=== PATIENT | female | born 1945 | race Caucasian/White ===

== ENCOUNTER 2016-10-15 15:58 | Observation (INO) ==
[2016-10-15] MEDS ORDERED: MORPHINE SULFATE 2 MG SYRINGE IVP ONE ×3 (16:20→18:25)
--- NOTE | 2016-10-15 16:29 | Emergency Department Report ---
General Adult HPI - General Chief complaint: Fall Stated complaint: Fall Time Seen by Provider: 10/15/16 16:05 Source: patient Mode of arrival: EMS Limitations: no limitations - History of Present Illness HPI narrative: 89-year-old female presents to the emergency department with a chief complaint of an injury to the right lower extremity. Patient noted onset of symptoms earlier today prior travel to the emergency Department. Patient stood up and felt a popping sensation in her right lower extremity. Pain is moderate. Pain is dull. Pain increases with movement and improves with rest and positioning. - Related Data Home Medications Medication Instructions Recorded Confirmed Gabapentin 300 mg PO BID #0 06/22/10 10/15/16 Aspirin [Aspir 81] 81 mg PO DAILY #0 06/03/15 10/15/16 Carvedilol 3.125 mg PO BIDWM #0 06/03/15 10/15/16 Escitalopram Oxalate 10 mg PO DAILY #0 06/03/15 10/15/16 Fluconazole 100 mg PO DAILY #0 06/03/15 10/15/16 Furosemide 40 mg PO DAILY PRN #0 06/03/15 10/15/16 Hydrocodone/Acetaminophen 1 tab PO Q6H PRN #0 06/03/15 10/15/16 [Hydrocodon-Acetaminophn 10-325] Lactobacillus Rhamnosus GG 1 cap PO DAILY #0 06/03/15 10/15/16 [Culturelle] Morphine Sulfate [Ms Contin] 15 mg PO BID #0 06/03/15 10/15/16 Potassium Chloride 20 meq PO WB #0 06/03/15 10/15/16 Vitamin B Complex [B Complex] 1 tab PO WL #0 06/03/15 10/15/16 [address]SALAzine [Sulfasalazine Dr] 1,500 mg PO BID #0 06/03/15 10/15/16 Biotin 5,000 mcg PO WL 10/15/16 10/15/16 Cetirizine [Zyrtec] 10 mg PO HS 10/15/16 10/15/16 Estradiol [Estrace] 0.5 mg PO Q2D 10/15/16 10/15/16 Folic Acid 0.8 mg PO WL 10/15/16 10/15/16 Levothyroxine Sodium 37.5 mcg PO HS 10/15/16 10/15/16 Methotrexate Inj [Methotrexate] 25 mg IM WEEKLY 10/15/16 10/15/16 Multivit-Min/FA/Lycopen/Lutein 1 tab PO DAILY 10/15/16 10/15/16 [Centrum Silver Tablet] Tofacitinib Citrate [Xeljanz] 10 mg PO DAILY 10/15/16 10/15/16 guaiFENesin [Mucinex] 600 mg PO DAILY 10/15/16 10/15/16 Allergies Allergy/AdvReac Type Severity Reaction Status Date / Time No Known Allergies Allergy Verified 10/15/16 16:11 Review of Systems Constitutional: Denies: fever, chills Eyes: Denies: eye pain, vision change ENT: Denies: ear pain, throat pain Cardiovascular: Denies: chest pain, palpitations Respiratory: Denies: cough, dyspnea Gastrointestinal: Denies: abdominal pain, nausea, vomiting, diarrhea Genitourinary: Denies: urgency, dysuria Musculoskeletal: Reports: arthralgia. Denies: back pain Integumentary: Denies: erythema, rash Neurological: Denies: headache, numbness Psychiatric: Denies: anxiety, depression Endocrine: Denies: fatigue, heat or cold intolerance Hematological/Lymphatic: Denies: easy bleeding, easy bruising Allergic/Immunologic: Denies: facial swelling, urticaria PFSH Patient Stated Medical History Migraine Yes Cataracts Yes Dental Problems Yes Congestive Heart Failure Yes Coronary Artery Disease Yes Hypertension Yes Myocardial Infarction Yes Bronchitis Yes Chronic Obstructive Pulmonary Yes Disease (COPD) Diabetes Mellitus Type 2 Yes Hx Incontinence Yes Cellulitis Yes MRSA Yes Shingles Yes Depression Yes Post Menopausal Yes Clinic Medical History (Last Reviewed 10/13/16 @ 19:34 by Liz Hernández MD) AMBROSIO (obstructive sleep apnea) (Chronic Medical) Asthma (Chronic Medical) Hyperlipidemia (Chronic Medical) CHF (congestive heart failure) (Chronic Medical) Migraine headache (Chronic Medical) Chronic renal insufficiency, stage II (mild) (Chronic Medical) Hypothyroidism (Chronic Medical) Respiratory failure (Chronic Medical) COPD (chronic obstructive pulmonary disease) (Chronic Medical) Rheumatoid arthritis (Chronic Medical) Osteoarthritis (Chronic Medical) Depression (Chronic Medical) Type 2 diabetes mellitus (Chronic Medical) Hypertension (Chronic Medical) Non-ST elevated myocardial infarction (non-STEMI) (Resolved Medical) Surgical History: Tonsils-1955, Toe Surgery 1994, Hysterectomy-1998. Back Surgery 2000, Lypoma-2002, Ankle-08/06/2013, Rt Wrist Carpal Tunnel- 2012, Family History: Family History (Last Reviewed 10/13/16 @ 19:34 by Liz Hernández MD) Other Unknown family medical history - Social History Smoking status: Current every day smoker Substance use type: does not use Alcohol intake frequency: does not drink Physical Exam - Limitations Limitations: no limitations - General General appearance: alert, in no apparent distress - Normal Exams: Head:: Normocephalic without trauma Eyes:: Pupils are PERRLA w/ EOMI, No scleral icterus, irritation, or foreign bodies noted ENMT:: No facial trauma, nasal exudates, pharyngeal erythema, or exudates are noted Dental: No fractured, loose, or missing teeth noted Neck:: Full range of motion Chest/Respirations:: Clear all payne, with good airflow, and symmetry bilaterally Cardiovascular:: Regular rate and rhythm, without murmur or gallop, Pulses 2+ all extremities, capillary refill, <2 seconds all extremities Abdomen:: Bowel sounds positive, soft, non-tender, non-distended, no hepatosplenomegaly, masses or bruits noted Lymphatic:: No lymphadenopathy, or lymphedema noted Musculoskeletal:: No tenderness, or deformity noted, good range of motion, all extremities (RLE - + chronic deformity. Tender to palpation over the distal tibia/fibula. This is intact. Sensation intact. Capillary refill less than 2. Full range of motion. Skin is intact. No erythema. No edema.) Integumentary:: No rashes, hives, or bruising noted, hair and nails, without abnormality Neurological:: Patient is alert, and oriented, cranial nerves, motor/sensory/ cerebellar, exams w/o gross deficits, to observation Psychiatric:: Patient exhibits, appropriate attention, emotion and affect Course Vital Signs Temperature 98.4 F 10/15/16 16:00 Pulse Rate 75 10/15/16 16:00 Respiratory Rate 17 10/15/16 16:00 Blood Pressure 169/79 H 10/15/16 16:00 Pulse Oximetry 98 10/15/16 16:00 Temperature 97.8 F 10/16/16 07:45 Pulse Rate 77 10/16/16 07:45 Respiratory Rate 16 10/16/16 07:45 Blood Pressure 174/87 H 10/16/16 07:45 Pulse Oximetry 93 10/16/16 07:45 Medical Decision Making - MDM Narrative Medical decision making narrative: Imaging is discussed in detail with the patient and questions are answered. Patient is given analgesic pain medication within 1 hour of arrival to the emergency Department. Patient is placed in a short-leg posterior splint with sugar tong by myself with good alignment. Patient is distal neurovascular intact post-application of splint. Patient is unable to return home and is admitted to the service of the hospitalist with orthopedic consultation of Dr. Otto. Patient and family are in agreement with the current plan of management. Patient is admitted to the hospital in improved condition per patient is admitted to the service of Dr. Angulo. No further orders from accepting or consulting physicians were in agreement with the current plan of management. - Differential Diagnosis sprain, strain, fracture, dislocation - Lab Data Result diagrams: 10/16/16 04:50 10/16/16 04:50 - Radiology Data Right foot x-ray: Negative Right tibia/fibula x-ray: Tibial fracture noted. Closed. Right ankle x-ray: Tibial fracture noted. Chronic changes postoperative. Closed. Disposition Clinical Impression: Compression fracture Disposition: 02 To [facility] Condition: Stable Time of Disposition: 18:15 - Seen By: physician
--- NOTE | 2016-10-15 17:20 | XRay Report ---
Indication: PAin / INJURY PROCEDURE: XR foot RT min 3V: Encounter: Initial Comparison: None Findings: No acute fracture identified. Bony ankylosis of the hindfoot. Severe degenerative change at the first metatarsophalangeal joint. Flexion deformities of the first and second toes are probably chronic. Inferior calcaneal spurring. Diffuse soft tissue swelling. Impression: No acute fracture. .
[2016-10-15] MEDS ORDERED: ONDANSETRON 4 MG/2 ML INJECTION IVP PRN (19:37)
--- NOTE | 2016-10-15 20:00 | History & Physical Report ---
History of Present Illness Date: 10/15/16 Chief complaint: Severe right lower leg pain. HPI: 70 y/o female presents to [facility] via EMS secondary to severe right lower leg pain. She has had previous fractures to this ext, resulting in her right foot rotated outwards. On 10/07 she started to having increasing pain to this ext. No injury or trauma at that time. Pain very persistent, not relieved with her chronic pain medications. She was worried she developed a fracture; was seen my Dr Hernández for evaluation. Xrays done at that time did not show any acute marixa abnormality. Sono done did not show DVT. Pain has persisted. Was seen yesterday by PCP. Given cortisone injection and Home Health initiated. Today was coming back from the bathroom and needed to transfer from her hover round to chair. As got up, felt and heard a loud POP in her right leg. Developed severe pain. Fortunately, was able to ease herself onto chair. She had no head trauma or loss of consciousness. EMS activated and patient taken to [facility] ED for evaluation. Required 6mg MS enroute due to pain. X-rays revealed a tib/fib fracture. Patient splinted in ED. Treated with IV pain medications. With her severe pain and limited mobility, unable to transfer. Dr Angulo notified for admission to OBS for further pain control and evaluation. Review of Systems Comprehensive ROS: completed and no additional positive findings except those as stated - EENMT Nose: Present: allergies - Respiratory Respiratory: Present: cough (occational) - Musculoskeletal Musculoskeletal: Present: back pain (Chronic) - Allergic/Immunologic Allergic/Immunologic: Present: seasonal rhinorrhea. Absent: throat swelling, itchy eyes [facility] Medical History (Last Reviewed 10/13/16 @ 19:34 by Liz Hernández MD) AMBROSIO (obstructive sleep apnea) (Chronic Medical) Asthma (Chronic Medical) Hyperlipidemia (Chronic Medical) CHF (congestive heart failure) (Chronic Medical) Migraine headache (Chronic Medical) Chronic renal insufficiency, stage II (mild) (Chronic Medical) Hypothyroidism (Chronic Medical) Respiratory failure (Chronic Medical) COPD (chronic obstructive pulmonary disease) (Chronic Medical) Rheumatoid arthritis (Chronic Medical) Osteoarthritis (Chronic Medical) Depression (Chronic Medical) Type 2 diabetes mellitus (Chronic Medical) Hypertension (Chronic Medical) Non-ST elevated myocardial infarction (non-STEMI) (Resolved Medical) Surgical History: Tonsils-1955, Toe Surgery 1994, Hysterectomy-1998. Back Surgery 2000, Lypoma-2001, Ankle-08/06/2013, Rt Wrist Carpal Tunnel- 2012, Family History: Father of colon cancer. Mother of heart disease; had HTN and OA. - Social History Smoking status: Current every day smoker (6 cigarettes a day) Housing: house Household members: spouse ( 50 years in Mar 2017) Current residence: Apartment/Private Home Social history: Dr Gardner PCP Medications Home Medications Medication Instructions Recorded Confirmed Type Gabapentin 300 mg PO BID #0 06/22/10 10/15/16 History Aspirin [Aspir 81] 81 mg PO DAILY #0 06/03/15 10/15/16 History Carvedilol 3.125 mg PO BIDWM #0 06/03/15 10/15/16 History Escitalopram Oxalate 10 mg PO DAILY #0 06/03/15 10/15/16 History Fluconazole 100 mg PO DAILY #0 06/03/15 10/15/16 History Furosemide 40 mg PO DAILY PRN #0 06/03/15 10/15/16 History Hydrocodone/Acetaminophen 1 tab PO Q6H PRN #0 06/03/15 10/15/16 History [Hydrocodon-Acetaminophn 10-325] Lactobacillus Rhamnosus GG 1 cap PO DAILY #0 06/03/15 10/15/16 History [Culturelle] Morphine Sulfate [Ms Contin] 15 mg PO BID #0 06/03/15 10/15/16 History Potassium Chloride 20 meq PO WB #0 06/03/15 10/15/16 History Vitamin B Complex [B Complex] 1 tab PO WL #0 06/03/15 10/15/16 History sulfaSALAzine [Sulfasalazine Dr] 1,500 mg PO BID #0 06/03/15 10/15/16 History Biotin 5,000 mcg PO WL 10/15/16 10/15/16 History Cetirizine [Zyrtec] 10 mg PO HS 10/15/16 10/15/16 History Estradiol [Estrace] 0.5 mg PO Q2D 10/15/16 10/15/16 History Folic Acid 0.8 mg PO WL 10/15/16 10/15/16 History Levothyroxine Sodium 37.5 mcg PO HS 10/15/16 10/15/16 History Methotrexate Inj [Methotrexate] 25 mg IM WEEKLY 10/15/16 10/15/16 History Multivit-Min/FA/Lycopen/Lutein 1 tab PO DAILY 10/15/16 10/15/16 History [Centrum Silver Tablet] Tofacitinib Citrate [Xeljanz] 10 mg PO DAILY 10/15/16 10/15/16 History guaiFENesin [Mucinex] 600 mg PO DAILY 10/15/16 10/15/16 History Allergies Allergy/AdvReac Type Severity Reaction Status Date / Time No Known Allergies Allergy Verified 10/15/16 16:11 Exam Vital Signs: Temperature 98.1 F 10/15/16 18:30 Pulse Rate 70 10/15/16 19:25 Respiratory Rate 20 10/15/16 19:25 Blood Pressure 182/79 H 10/15/16 19:25 Pulse Oximetry 93 10/15/16 19:25 Oxygen Delivery Method Room Air - Constitutional Present: mild distress, well nourished, well developed, morbidly obese, cooperative - Routine HEENT Exam Head: Present: normocephalic, atraumatic Eye: Present: EOMI, PERRL. Absent: conjunctival icterus ENT: Present: mucous membranes moist - Routine Neck Exam Present: supple, trachea midline - Routine Respiratory Exam Present: CTA bilaterally. Absent: respiratory distress, rhonchi, wheezes, crackles - Routine Cardiovascular Exam Present: RRR, no murmur - Routine Abdominal Exam Present: soft, normoactive bowel sounds, non distended, non tender. Absent: rebound - Routine Extremities Exam Present: edema (+2 bilateral LE), pulses intact - Detailed Lower Extremity Exam Lower leg: Right deformity (Ankle rotated laterally; splint on leg) - Routine Skin Exam Present: intact, warm, normal turgor - Routine Neurological Exam Present: alert, oriented X3, CN II-XII intact, vision grossly intact, hearing grossly intact. Absent: motor deficit - Routine Psychiatric Exam Present: normal affect, normal thought process, cooperative, good insight, good judgment. Absent: anxious, agitated Assessment and Plan (1) Tibia/fibula fracture Current visit: Yes Status: Acute DVT Prophylaxis: SCD's Resuscitation Status: Do Not Resuscitate Assessment and Plan: Assessment Right tib/fib fracture Intractable pain Gait instability - acute on chronic Chronic pain Chronic narcotic pain use Type II DM COPD AMBROSIO HTN Hypothyroidism Tobacco dependency Morbid obesity Plan OBS for pain control - Dilaudid 0.5mg IV q 3 hours as needed. Continue chronic pain medications. PT/OT eval/treat in am due to patients worsening gait instability due to fracture pain. Ortho consult with Dr Otto for evaluation of fracture. SCD for DVT prevention. Continue home medications. RT for tobacco cessation. Offered nicotine patch, but patient declined. Monitor blood sugars due to diabetes. Continue home medications. Discussed code status: patient request DNR. Care to return to Dr Gardner at time of discharge from [facility]. High risk medication involved-IV Dilaudid. Monitor respiratory status. Hospital Course Summary Disclaimer: The visit summary below is not to be considered part of the above Progress Note. Hospital Course: 10/15/16 Assessment Right tib/fib fracture Intractable pain Gait instability - acute on chronic Chronic pain Chronic narcotic pain use Type II DM COPD AMBROSIO HTN Hypothyroidism Tobacco dependency Morbid obesity Plan OBS for pain control - Dilaudid 0.5mg IV q 3 hours as needed. Continue chronic pain medications. PT/OT eval/treat in am due to patients worsening gait instability due to fracture pain. Ortho consult with Dr Otto for evaluation of fracture. SCD for DVT prevention. Continue home medications. RT for tobacco cessation. Offered nicotine patch, but patient declined. Monitor blood sugars due to diabetes. Continue home medications. Discussed code status: patient request DNR. Care to return to Dr Gardner at time of discharge from [facility].
[2016-10-15] MEDS: HYDROMORPHONE 2 MG/ML INJECTION IVP PRN (20:01)
[2016-10-15 20:15] VITALS: BMI 52.1
[2016-10-15] MEDS ORDERED: BISACODYL 10 MG SUPPOSITORY RECTALLY PRN (20:18)
[2016-10-15] MEDS ORDERED: FALL RISK - PHARMACY CONSULT MC PRN (20:26)
[2016-10-15] MEDS ORDERED: LEVOTHYROXINE 25 MCG TABLET PO SCH (21:00)
[2016-10-15] MEDS ORDERED: CETIRIZINE 10 MG PO SCH (21:00)
[2016-10-15] MEDS: GABAPENTIN 300 MG CAP - PT OWN PO SCH (22:46)
[2016-10-16] MEDS: HYDROCODONE/APAP 10 MG/325 MG TABLET PO PRN ×2 (00:49→13:53)
[2016-10-16] MEDS: AMOX PO SCH ×2 (01:53→09:38)
[2016-10-16] MEDS: CLAV PO SCH ×2 (01:53→09:38)
[2016-10-16] MEDS: HYDROMORPHONE 2 MG/ML INJECTION IVP PRN ×3 (01:59→12:45)
[2016-10-16] MEDS: SALINE FLUSH 10ml SYRINGE IV PRN ×3 (06:12→15:07)
[2016-10-16] MEDS ORDERED: LEVOTHYROXINE 25 MCG PO SCH (06:30)
[2016-10-16] MEDS: SULFASALAZINE 500 MG PO SCH ×2 (07:43→09:43)
--- NOTE | 2016-10-16 07:51 | XRay Report ---
Indication: Pain / INJURY PROCEDURE: XR tib/fib RT 2V: Encounter: Initial Comparison: None Findings: There is a nondisplaced oblique fracture of the distal tibial diaphysis. No additional acute fracture seen. There are chronic abnormalities seen with prior resection of the distal fibula and arthrodesis of the ankle joint with a partially threaded screw. Abnormal positioning of the foot which is externally rotated, likely chronic. Impression: Closed posttraumatic distal tibial fracture. .
--- NOTE | 2016-10-16 07:51 | XRay Report ---
Indication: Pain / INJURY PROCEDURE: XR ankle RT min 3V: Encounter: Initial Comparison: Tibia and fibular radiographs from the same time and right ankle radiographs dated October 11, 2016 Findings: Oblique nondisplaced fracture of the distal tibial diaphysis is seen. Prior resection of the distal fibula. Prior arthrodesis of the hindfoot with a partially threaded screw across the fused ankle joint. Complete bony ankylosis of the hindfoot. Impression: Closed posttraumatic distal tibial fracture. .
[2016-10-16] MEDS ORDERED: LACTOBACILLUS PO SCH (08:00)
[2016-10-16] MEDS ORDERED: CARVEDILOL 3.125 MG PO SCH (08:00)
[2016-10-16] MEDS ORDERED: POLYETHYL GLYCOL 3350 17gm PACKET PO SCH (09:00)
[2016-10-16] MEDS ORDERED: GUAIFENESIN 600 MG PO SCH (09:00)
[2016-10-16] MEDS ORDERED: ASPIRIN *EC* 81 MG TAB - PT OWN PO SCH (09:00)
[2016-10-16] MEDS ORDERED: FLUCONAZOLE 100 MG PO SCH (09:00)
[2016-10-16] MEDS ORDERED: ESCITALOPRAM 10 MG TABLET PO SCH (09:00)
[2016-10-16] MEDS ORDERED: MULTI VITAMIN PO SCH (09:00)
--- NOTE | 2016-10-16 09:23 | Orthopedic Consult Note ---
Orthopedic Consultation HPI - Consultation Info Consult Date: 10/17/16 Attending Physician: Alan Angulo MD Consult Reason: fracture - History of Present Illness Cherrie is a 70 yo lady who had a right talo-tibial fusion by Dr Mares a few years ago. She is severely limited in mobility and is dependent on a scooter to get around. She does take a step or two on the right leg with transfers but is more dependent on the left side for support. She began having pain a few weeks ago but did not experience severe pain until . She was transferring to her scooter when she heard a loud "pop" and experienced immediate-severe pain in the right lower leg. She presented to [facility] [place] [facility] for evaluation and was found to have a non-displace distal tibia fracture on the right. Pt was placed in the hospital by Dr Angulo for pain management and mobility limitations with this fracture. Orthopedics is consulted for management of the fracture. Pt continues to report moderate pain levels this AM. Review of Systems - Constitutional Constitutional: Absent: chills, fever(s) - Cardiovascular Cardiovascular: Absent: chest pain - Respiratory Respiratory: Absent: cough - Gastrointestinal Gastrointestinal: Absent: abdominal pain - Genitourinary Genitourinary General: Absent: chills, fever(s) - Musculoskeletal Musculoskeletal: Present: as per HPI, abnormal gait, arthralgias, deformity, joint pain - Neurological Neurological: Present: abnormal gait. Absent: frequent falls - Psychiatric Psychiatric: Absent: depression PFS Patient Stated Medical History Migraine Yes Cataracts Yes Dental Problems Yes Congestive Heart Failure Yes Coronary Artery Disease Yes Hypertension Yes Myocardial Infarction Yes Bronchitis Yes Chronic Obstructive Pulmonary Yes Disease (COPD) Diabetes Mellitus Type 2 Yes Hx Incontinence Yes Cellulitis Yes MRSA Yes Shingles Yes Depression Yes Post Menopausal Yes Clinic Medical History (Last Reviewed 10/13/16 @ 19:34 by Liz Hernández MD) AMBROSIO (obstructive sleep apnea) (Chronic Medical) Asthma (Chronic Medical) Hyperlipidemia (Chronic Medical) CHF (congestive heart failure) (Chronic Medical) Migraine headache (Chronic Medical) Chronic renal insufficiency, stage II (mild) (Chronic Medical) Hypothyroidism (Chronic Medical) Respiratory failure (Chronic Medical) COPD (chronic obstructive pulmonary disease) (Chronic Medical) Rheumatoid arthritis (Chronic Medical) Osteoarthritis (Chronic Medical) Depression (Chronic Medical) Type 2 diabetes mellitus (Chronic Medical) Hypertension (Chronic Medical) Non-ST elevated myocardial infarction (non-STEMI) (Resolved Medical) Surgical History: Tonsils-1955, Toe Surgery 1994, Hysterectomy-1998. Back Surgery 2000, Lypoma-2001, Ankle-08/06/2013, Rt Wrist Carpal Tunnel- 2012, Family History: Family History (Last Reviewed 10/13/16 @ 19:34 by Liz Hernández MD) Other Unknown family medical history - Social History Smoking status: Current every day smoker (6 cigarettes a day) Current residence: Apartment/Private Home Medications Home Medications Medication Instructions Recorded Confirmed Type Gabapentin 300 mg PO BID #0 06/22/10 10/15/16 History Aspirin [Aspir 81] 81 mg PO DAILY #0 06/03/15 10/15/16 History Carvedilol 3.125 mg PO BIDWM #0 06/03/15 10/15/16 History Escitalopram Oxalate 10 mg PO DAILY #0 06/03/15 10/15/16 History Fluconazole 100 mg PO DAILY #0 06/03/15 10/15/16 History Furosemide 40 mg PO DAILY PRN #0 06/03/15 10/15/16 History Hydrocodone/Acetaminophen 1 tab PO Q6H PRN #0 06/03/15 10/15/16 History [Hydrocodon-Acetaminophn 10-325] Lactobacillus Rhamnosus GG 1 cap PO DAILY #0 06/03/15 10/15/16 History [Culturelle] Morphine Sulfate [Ms Contin] 15 mg PO BID #0 06/03/15 10/15/16 History Potassium Chloride 20 meq PO Q2D #0 06/03/15 10/16/16 History Vitamin B Complex [B Complex] 1 tab PO WL #0 06/03/15 10/15/16 History sulfaSALAzine [Sulfasalazine Dr] 1,000 mg PO BID #0 06/03/15 10/16/16 History Biotin 5,000 mcg PO WL 10/15/16 10/15/16 History Cetirizine [Zyrtec] 10 mg PO HS 10/15/16 10/15/16 History Estradiol [Estrace] 0.5 mg PO Q2D 10/15/16 10/15/16 History Folic Acid 0.8 mg PO WL 10/15/16 10/15/16 History Levothyroxine Sodium 37.5 mcg PO AM 10/15/16 10/16/16 History Methotrexate Inj [Methotrexate] 25 mg IM WEEKLY 10/15/16 10/15/16 History Multivit-Min/FA/Lycopen/Lutein 1 tab PO NOON 10/15/16 10/16/16 History [Centrum Silver Tablet] Tofacitinib Citrate [Xeljanz] 10 mg PO DAILY 10/15/16 10/15/16 History guaiFENesin [Mucinex] 600 mg PO DAILY 10/15/16 10/15/16 History Amoxicillin/Potassium Clav 1 each PO BID 10/16/16 10/16/16 History [Augmentin 875-125 Tablet] Allergies Allergy/AdvReac Type Severity Reaction Status Date / Time No Known Allergies Allergy Verified 10/15/16 16:11 Orthopedic Exam Vital signs: Temperature 97.8 F 10/16/16 07:45 Pulse Rate 77 10/16/16 07:45 Respiratory Rate 16 10/16/16 07:45 Blood Pressure 174/87 H 10/16/16 07:45 Pulse Oximetry 93 10/16/16 07:45 Oxygen Delivery Method Room Air Oxygen Flow Rate 90 - Constitutional General Appearance: Present: alert, no acute distress, morbidly obese - Respiratory Exam Present: non-labored - Cardiovascular Exam Present: other (currently in a splint.) Capillary Refill: < 2-3 Seconds - Abdominal Exam Present: soft. Absent: tenderness, distended - Extremities Exam Present: edema (+2 bilateral LE), normal capillary refill - Detailed Lower Extremity Exam Lower leg: Right deformity (Ankle rotated laterally; splint on leg), Right swelling, Right tenderness (Distal tibial shaft.) Ankle: Bilateral normal inspection (Marked deformity of both ankles / feet.) Foot/Toes: Bilateral deformity, Bilateral decreased ROM - Integumentary Exam Present: pink, warm, dry. Absent: rash, erythema - Neurological Exam Present: no deficits - Psychiatric Exam Present: alert, normal affect - Labs Result Diagrams: 10/16/16 04:50 10/16/16 04:50 Abnormal lab results 10/16/16 10/16/16 Range/Units 04:50 04:50 WBC 11.1 H (4.5-11.0) T/MM3 RBC 3.65 L (4.00-5.20) M/MM3 MCV 108.8 H (80-100) UM3 MCH 34.5 H (26-34) UUG RDW Std Deviation 56.5 H (36.9-50.2) FL Neut % (Auto) 71.1 H (33-66) % Lymph % (Auto) 21.3 L (23-45) % Neut # 7.9 H (1.8-7.7) T/MM3 Abs Immat Gran (auto) 0.04 H (0.00-0.03) T/MM3 Carbon Dioxide 33 H (22-30) MEQ/L BUN 19.0 H (7-17) MG/DL BUN/Creatinine Ratio 27 H (6-26) RATIO Glucose 158 H (65-110) MG/DL AST 74 H (14-36) U/L ALT 68 H (9-52) U/L Alkaline Phosphatase 131 H (38-126) U/L H & H 10/16/16 Range/Units 04:50 Hgb 12.6 (12-16) GM/DL Hct 39.7 (36-46) % Impression and Recommendation (1) Fracture of tibial shaft, right, closed Qualifiers: Encounter type: initial encounter Fracture morphology: oblique Fracture alignment: nondisplaced Qualified Code(s): S82.234A - Nondisplaced oblique fracture of shaft of right tibia, initial encounter for closed fracture Status: Acute Pt has a non-displaced fracture of the right distal diaphysis of the tibia. Will treat this with a splint and non-wt bearing. Surgical intervention not required at this time. Monitor xrays to watch for displacement. Work with PT / OT and have Case Management discuss placement needs. Pt currently lives in her own home ([place]) with her , daughter and granddaughter. She is dependent on a chair to get up and down stairs and uses a scooter for mobilty. Will place her in a short leg, NON-wt bearing cast and recheck xrays. F/U on Friday to watch skin closely as she is diabetic. Will recheck xrays on Friday. Pt is at risk to displace the fracture if she is unable to maintain non-wt bearing status. Hospital Course Summary Disclaimer: The visit summary below is not to be considered part of the above Progress Note. Hospital Course: 10/15/16 Assessment Right tib/fib fracture Intractable pain Gait instability - acute on chronic Chronic pain Chronic narcotic pain use Type II DM COPD AMBROSIO HTN Hypothyroidism Tobacco dependency Morbid obesity Plan OBS for pain control - Dilaudid 0.5mg IV q 3 hours as needed. Continue chronic pain medications. PT/OT eval/treat in am due to patients worsening gait instability due to fracture pain. Ortho consult with Dr Otto for evaluation of fracture. SCD for DVT prevention. Continue home medications. RT for tobacco cessation. Offered nicotine patch, but patient declined. Monitor blood sugars due to diabetes. Continue home medications. Discussed code status: patient request DNR. Care to return to Dr Gardner at time of discharge from [facility] [place].
[2016-10-16] MEDS: GABAPENTIN 300 MG CAP - PT OWN PO SCH (09:46)
[2016-10-16] MEDS ORDERED: INSULIN ASPART 100unit/ml INJECTION SQ ONE (11:38)
[2016-10-16] MEDS ORDERED: INSULIN REGULAR, HUMAN 100 UNIT/ML INJECTION SQ ONE (11:56)
[2016-10-16] MEDS ORDERED: FOLIC ACID 1 MG PO SCH (12:00)
[2016-10-16] MEDS ORDERED: VITAMIN B COMPLEX PO SCH (12:00)
--- NOTE | 2016-10-16 13:44 | Progress Note ---
Subjective: F/U: Right tibial fracture. Doing okay today. Cast was placed by orthro-tolerating cast. Pain varies. Eating well. No nausea. Breathing well. Objective Vital signs: Temperature 97.8 F 10/16/16 07:45 Pulse Rate 77 10/16/16 07:45 Respiratory Rate 16 10/16/16 07:45 Blood Pressure 174/87 H 10/16/16 07:45 Pulse Oximetry 93 10/16/16 07:45 Oxygen Delivery Method Room Air Oxygen Flow Rate 90 Height/Weight/BMI: Height 1.55 m Weight 126.4 kg Body Mass Index 52.1 - Constitutional Present: well nourished, well developed, morbidly obese, cooperative - Routine HEENT Exam Head: Present: normocephalic, atraumatic Eye: Present: EOMI, PERRL ENT: Present: mucous membranes moist - Routine Respiratory Exam Present: CTA bilaterally. Absent: respiratory distress, rhonchi, wheezes, crackles - Routine Cardiovascular Exam Present: RRR - Routine Abdominal Exam Present: soft, normoactive bowel sounds, non distended, non tender - Routine Extremities Exam Absent: cyanosis, clubbing - Routine Musculoskeletal Exam Musculoskeletal: Present: no clubbing or cyanosis, other (Right leg/ankle in case) - Routine Skin Exam Present: intact, warm, normal turgor - Routine Neurological Exam Present: alert, oriented X3, CN II-XII intact, vision grossly intact, hearing grossly intact. Absent: motor deficit - Routine Psychiatric Exam Present: normal affect, normal thought process, cooperative, good insight, good judgment Results - Labs CBC & Chem 7: 10/16/16 04:50 10/16/16 04:50 Assessment and Plan (1) Fracture of tibial shaft, right, closed Current visit: Yes Status: Acute DVT Prophylaxis: SCD's Resuscitation Status: Do Not Resuscitate Assessment and Plan: Assessment Right tibial shaft fracture Intractable pain Gait instability - acute on chronic Chronic pain Chronic narcotic pain use Type II DM COPD AMBROSIO HTN Hypothyroidism Tobacco dependency Morbid obesity Plan Dr Otto consulted and cast placed. No surgical intervention needed. Recommends non weight bearing and monitoring of ext with x-ray to evaluate for displacement CM checked into IRU for help with therapy. Patient did not qualify for IRU. Arrangements for home PT/OT being made. Anticipate discharge to home later today as medically doing well. Will have pt f/u with Dr Sharma in 1 week. F/U with Reyes Nieves on 10/21/16 at 8:30am. See orders for details. Case discussed with CM, Dr Otto, and pt/pt's . Sepsis Assessment - Evaluation Sepsis screening result: No Definite Risk Hospital Course Summary Disclaimer: The visit summary below is not to be considered part of the above Progress Note. Hospital Course: 10/15/16 Assessment Right tibial fracture Intractable pain Gait instability - acute on chronic Chronic pain Chronic narcotic pain use Type II DM COPD AMBROSIO HTN Hypothyroidism Tobacco dependency Morbid obesity Plan OBS for pain control - Dilaudid 0.5mg IV q 3 hours as needed. Continue chronic pain medications. PT/OT eval/treat in am due to patients worsening gait instability due to fracture pain. Ortho consult with Dr Otto for evaluation of fracture. SCD for DVT prevention. Continue home medications. RT for tobacco cessation. Offered nicotine patch, but patient declined. Monitor blood sugars due to diabetes. Continue home medications. Discussed code status: patient request DNR. Care to return to Dr Sharma at time of [place] [facility] 10/16/16 Dr Otto consulted and cast placed. No surgical intervention needed. Recommends non weight bearing and monitoring of ext with x-ray to evaluate for displacement CM checked into IRU for help with therapy. Patient did not qualify for IRU. Arrangements for home PT/OT being made. Anticipate discharge to home later today as medically doing well. Will have pt f/u with Dr Sharma in 1 week. F/U with Reyes Nieves on 10/21/16 at 8:30am.
--- NOTE | 2016-10-16 13:56 | Discharge Instructions ---
Discharge Plan - Med Rec/Dispo Referrals/Follow Up: Reyes Nieves PA [Physician Attorney Lawyer] - 10/21/16 8:30 am [place] Instructions: Foot Fracture in Adults ([place]), [facility] Ortho Fracture Instructions Additional Instructions: Must remain non-weight bearing on the right leg. Keep the cast dry. Elevate the leg to prevent swelling. Prescriptions: No Action Escitalopram Oxalate 10 mg PO DAILY #0 Fluconazole 100 mg PO DAILY #0 Furosemide 40 mg PO DAILY PRN #0 PRN Reason: Prn Orders Hydrocodone/Acetaminophen [Hydrocodon-Acetaminophn 10-325] 1 tab PO Q6H PRN # 0 PRN Reason: PAIN Morphine Sulfate [Ms Contin] 15 mg PO BID #0 Potassium Chloride 20 meq PO WB #0 Vitamin B Complex [B Complex] 1 tab PO WL #0 [address]aSALAzine [Sulf[address]] 1,500 mg PO BID #0 Cetirizine [Zyrtec] 10 mg PO HS Folic Acid 0.8 mg PO WL Tofacitinib Citrate [Xeljanz] 10 mg PO DAILY Multivit-Min/FA/Lycopen/Lutein [Centrum Silver Tablet] 1 tab PO DAILY guaiFENesin [Mucinex] 600 mg PO DAILY Levothyroxine Sodium 37.5 mcg PO HS Gabapentin 300 mg PO BID #0 Aspirin [Aspir 81] 81 mg PO DAILY #0 Carvedilol 3.125 mg PO BIDWM #0 Lactobacillus Rhamnosus GG [Culturelle] 1 cap PO DAILY #0 Estradiol [Estrace] 0.5 mg PO Q2D Biotin 5,000 mcg PO WL Methotrexate Inj [Methotrexate] 25 mg IM WEEKLY
--- NOTE | 2016-10-16 14:47 | XRay Report ---
Indication: check fracture post cast application PROCEDURE: XR tib/fib RT 2V: Encounter: Initial Comparison: October 15, 2016 Findings: Distal tibial fracture is again noted in a cast. There is subtle apex medial angulation at the fracture site. No new fracture or dislocation. Impression: Interval casting of the distal tibial fracture as above. .
[2016-10-16 15:25] VITALS: BP 150/93; PULSE 80; RESP 18; TEMP 98.1; O2SAT 92
--- NOTE | 2016-10-16 15:32 | Discharge Summary ---
Discharge Information Date of admission: 10/15/16 18:57 Anticipated date of discharge: 10/16/16 Attending Physician: Alan Angulo MD Primary care physician: Eran Sharma MD Consults: 10/15/16 - Consulting Provider: Alberto Otto - Reason For Exam: Fx of right LE 10/16/16 - PT/OT 10/16/16 - IRU Screening - Discharge Diagnosis Discharge Diagnosis: Right tibial fracture Associated conditions and complications: Intractable pain Gait instability - acute on chronic Chronic pain Chronic narcotic pain use Type II DM COPD AMBROSIO HTN Hypothyroidism Tobacco dependency Morbid obesity - Laboratory Labs: 10/16/16 04:50 10/16/16 04:50 - Radiology Radiology: Date of Exam: 10/15/16 Type of Exam: XR ankle RT min 3V Comparison: Tibia and fibular radiographs from the same time and right ankle radiographs dated October 11, 2016 Findings: Oblique nondisplaced fracture of the distal tibial diaphysis is seen. Prior resection of the distal fibula. Prior arthrodesis of the hindfoot with a partially threaded screw across the fused ankle joint. Complete bony ankylosis of the hindfoot. Impression: Closed posttraumatic distal tibial fracture. Date of Exam: 10/15/16 Type of Exam(s): XR foot RT min 3V Findings: No acute fracture identified. Bony ankylosis of the hindfoot. Severe degenerative change at the first metatarsophalangeal joint. Flexion deformities of the first and second toes are probably chronic. Inferior calcaneal spurring. Diffuse soft tissue swelling. Impression: No acute fracture. History of Present Illness HPI: 70 y/o female [place] [facility] via [place] secondary to severe right lower leg pain. She has had previous fractures to this ext, resulting in her right foot rotated outwards. On 10/07 she started to having increasing pain to this ext. No injury or trauma at that time. Pain very persistent, not relieved with her chronic pain medications. She was worried she developed a fracture; was seen my Dr Betty for evaluation. Xrays done at that time did not show any acute marixa abnormality. Sono done did not show DVT. Pain has persisted. Was seen yesterday by PCP. Given cortisone injection and Home Health initiated. Today was coming back from the bathroom and needed to transfer from her hover round to chair. As got up, felt and heard a loud POP in her right leg. Developed severe pain. Fortunately, was able to ease herself onto chair. She had no head trauma or loss of consciousness. EMS activated and patient taken to [facility] for evaluation. Required 6mg MS enhilda due to pain. X-rays revealed a tib/fib fracture. Patient splinted in ED. Treated with IV pain medications. With her severe pain and limited mobility, unable to transfer. Dr Angulo notified for admission to OBS for further pain control and evaluation. For complete details of the H&P refer to that document. Objective Vital signs: Temperature 98.1 F 10/16/16 15:24 Pulse Rate 80 10/16/16 15:24 Respiratory Rate 18 10/16/16 15:24 Blood Pressure 150/93 H 10/16/16 15:24 Pulse Oximetry 92 10/16/16 15:24 Oxygen Delivery Method Room Air Oxygen Flow Rate 90 Height/Weight/BMI: Height 1.55 m Weight 126.4 kg Body Mass Index 52.1 Hospital Course This is a general summary of the patient's hospital course. For more details refer to the complete medical record. Hospital course: 10/15/16 Assessment Right tibial fracture Intractable pain Gait instability - acute on chronic Chronic pain Chronic narcotic pain use Type II DM COPD AMBROSIO HTN Hypothyroidism Tobacco dependency Morbid obesity Plan OBS for pain control - Dilaudid 0.5mg IV q 3 hours as needed. Continue chronic pain medications. PT/OT eval/treat in am due to patients worsening gait instability due to fracture pain. Ortho consult with Dr Otto for evaluation of fracture. SCD for DVT prevention. Continue home medications. RT for tobacco cessation. Offered nicotine patch, but patient declined. Monitor blood sugars due to diabetes. Continue home medications. Discussed code status: patient request DNR. Care to return to Dr Sharma at time of discharge from [facility] 10/16/16 Dr Otto consulted and cast placed. No surgical intervention needed. Recommends non weight bearing and monitoring of ext with x-ray to evaluate for displacement CM checked into IRU for help with therapy. Patient did not qualify for IRU. Arrangements for home PT/OT being made. Anticipate discharge to home later today as medically doing well. Will have pt f/u with Dr Sharma in 1 week. F/U with Reyes Nieves on 10/21/16 at 8:30am. Time spent with patient: discharge greater than 30 minutes DVT Prophylaxis: SCD's Discharge Plan - Med Rec/Dispo Referrals/Follow Up: Reyes Nieves PA [Physician Bale Stacker] - 10/21/16 8:30 am Eran Sharma MD [Family Provider] - 1 Week (Hospital f/u for tib fracture) [place] Instructions: Foot Fracture in Adults ([place]), [facility] Ortho Fracture Instructions Additional Instructions: Must remain non-weight bearing on the right leg. Keep the cast dry. Elevate the leg to prevent swelling. Prescriptions: New SulfaSALAzine [Azulfidine] 1,000 mg PO BID tablet Continue Escitalopram Oxalate 10 mg PO DAILY #0 Fluconazole 100 mg PO DAILY #0 Furosemide 40 mg PO DAILY PRN #0 PRN Reason: Prn Orders Hydrocodone/Acetaminophen [Hydrocodon-Acetaminophn 10-325] 1 tab PO Q6H PRN # 0 PRN Reason: PAIN Morphine Sulfate [Ms Contin] 15 mg PO BID #0 Potassium Chloride 20 meq PO Q2D #0 Vitamin B Complex [B Complex] 1 tab PO WL #0 Cetirizine [Zyrtec] 10 mg PO HS Folic Acid 0.8 mg PO WL Tofacitinib Citrate [Xeljanz] 10 mg PO DAILY Multivit-Min/FA/Lycopen/Lutein [Centrum Silver Tablet] 1 tab PO NOON guaiFENesin [Mucinex] 600 mg PO DAILY Levothyroxine Sodium 37.5 mcg PO AM Gabapentin 300 mg PO BID #0 Aspirin [Aspir 81] 81 mg PO DAILY #0 Carvedilol 3.125 mg PO BIDWM #0 Lactobacillus Rhamnosus GG [Culturelle] 1 cap PO DAILY #0 Estradiol [Estrace] 0.5 mg PO Q2D Biotin 5,000 mcg PO WL Methotrexate Inj [Methotrexate] 25 mg IM WEEKLY Amoxicillin/Potassium Clav [Augmentin 875-125 Tablet] 1 each PO BID No Action sulfaSALAzine [Sulfasalazine Dr] 1,000 mg PO BID #0 Discharge Instructions/Outpatient Orders: Final Provider Discharge Instructions Location: Determined By Patient - Disposition [facility] Service - Attestation Attestation Narrative: 10/16/16 15:43 I have independently interviewed and examined pt prior to discharge. See my progress note from today for details. Medically stable for discharge.
[2016-10-16] MEDS ORDERED: SULFASALAZINE 500 MG PO SCH (21:00)
[2016-10-17] MEDS ORDERED: LEVOTHYROXINE 25 MCG PO SCH (06:30)
[2016-10-17] MEDS ORDERED: TOFACITINIB 11 MG PO SCH (09:00)
== END 2016-10-16 16:45 | disposition home health service (06) ==
LOC: SRG 15:58 → ED 15:58 → SRG 19:14
PROVIDERS: ADMIT Hospitalist; ATTEND Hospitalist